=== PATIENT | female | born 1995 | race Caucasian/White ===

== ENCOUNTER 2025-04-07 15:40 | Emergency (ER) | payer OTHER, SELFPAY ==
[2025-04-07 16:03] VITALS: BP 122/84; PULSE 72; RESP 18; TEMP 36.6; O2SAT 97; BMI 42.6
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
--- NOTE | 2025-04-07 18:49 | CRLHL7_ITS ---
For Patients: As a result of the Cures Act, medical imaging exams and procedure reports are released immediately into your electronic medical record. You may view this report before your referring provider. If you have questions, please contact your health care provider. Indication: Pain, clicking Technique: Left shoulder, 3 views. Comparison: None. Findings/Impression: No acute fracture or malalignment. The glenohumeral and acromioclavicular joints are congruent. No substantial degenerative changes. Soft tissues are unremarkable. Dictated by Joseline Faye MD @ 04/07/2025 8:37:49 PM (Electronically Signed)
[2025-04-07 18:57] VITALS: BP 128/73; PULSE 73; RESP 18; O2SAT 97
--- NOTE | 2025-04-07 18:58 | CRLHL7_ITS ---
For Patients: As a result of the Century Cures Act, medical imaging exams and procedure reports are released immediately into your electronic medical record. You may view this report before your referring provider. If you have questions, please contact your health care provider. Indication: Right-sided neck pain Technique: Cervical spine, 4 views. Comparison: None. Findings/Impression: There is straightening and partial reversal of the cervical lordosis centered at C5-C6. Mild dextroconvex curvature of the cervical spine. No acute fracture. Minimal multilevel degenerative disc disease and uncovertebral hypertrophy greatest at C5-C6. Soft tissues are unremarkable. Dictated by Joseline Faye MD @ 04/07/2025 8:36:44 PM (Electronically Signed)
== END 2025-04-07 21:03 | disposition home or self-care (01) ==
PROVIDERS: Emergency Provider Family Medicine
DX: M25.511 Pain in right shoulder (principal)
CPT/HCPCS: 72040; 73030; 96372; 99283; 99284; J1885